=== PATIENT | female | born 1975 | race Caucasian/White ===

== ENCOUNTER 2023-10-15 10:07 | Emergency (ER) | payer BC, SELFPAY ==
[2023-10-15 10:12] VITALS: BP 125/60; PULSE 77; RESP 16; TEMP 36.5; O2SAT 99
[2023-10-15 10:34] VITALS: O2SAT 100
[2023-10-15] MEDS: KETOROLAC TROMETHAMINE 30 MG/ML VIAL IVP (10:39)
[2023-10-15] MEDS: DIPHENHYDRAMINE HCL 50 MG/ML (1ML) VIAL 25 MG IV (10:39)
[2023-10-15] MEDS: ONDANSETRON PF 4 MG/2 ML VIAL IV (10:39)
[2023-10-15] MEDS: 0.9 % SODIUM CHLORIDE 1,000 ML 999 ML IV (10:39)
--- NOTE | 2023-10-15 10:51 | PC.NURSE ---
High flow NRB removed, pt reports High O2 not heelping.
[2023-10-15 10:56] LABS: SARS-CoV-2 Ag NEGATIVE (NEGATIVE)
--- NOTE | 2023-10-15 11:11 | ED.GENADUL1 ---
HPI - General Adult General Chief complaint: Headache Stated complaint: HEADACHE Time Seen by Provider: 10/15/23 10:16 Source: patient Mode of arrival: walk-in History of Present Illness HPI narrative: frontal headache with radiation into the back of the head that began yesterday. No recent injury or illness. Typically her migraines resolve after taking sumatriptan - this one has not. She said that she has never had to come to the ED for treatment of her headaches/migraines. Related Data Home Medications Medication Instructions Recorded Confirmed sumatriptan succinate 100 mg tablet 100 mg PO Q2H PRN migraine headache 10/15/23 10/15/23 Previous Rx's Medication Instructions Recorded ondansetron 4 mg disintegrating 4 mg PO Q6H PRN nausea or headache 10/15/23 tablet #20 tabs Allergies Allergy/AdvReac Type Severity Reaction Status Date / Time azithromycin Allergy Severe Verified 10/15/23 10:15 Exam Narrative Exam Narrative: Nurses notes and vital signs reviewed and patient is not hypoxic. afebrile General: Uncomfortable. Skin: Warm, dry, no pallor noted. No rash. Head: Normocephalic, atraumatic. Neck: Supple, non-tender. no meningismus Eye: Pupils are equal, round and EOMI. No scleral icterus. Cardiovascular: Regular Rate and Rhythm without murmur, gallop or rub. Respiratory: No accessory muscle use or respiratory distress. Lungs are clear to auscultation, no wheezing, rales or rhonchi Chest Wall: no tenderness Back: No CVA tenderness Musculoskeletal: normal ROM GI: Abdomen is soft, non-distended. Normal bowel sounds. No tenderness to palpation. No rebound, guarding, or rigidity noted. Neurological: A&O x4. No cranial nerve dysfunction observed. No truncal ataxia. Moves all extremities. Sensation intact. Psychiatric: Cooperative and interactive. Normal mood and affect. Constitutional Vital Signs, click to edit/add: Last Vital Signs Temp 97.7 F 10/15/23 10:12 Pulse 73 10/15/23 11:29 Resp 14 10/15/23 11:29 BP 119/55 10/15/23 11:29 Pulse Ox 100 10/15/23 11:29 O2 Del Method Room Air 10/15/23 10:51 Course Vital Signs Vital signs: Vital Signs Temperature 97.7 F 10/15/23 10:12 Pulse Rate 77 10/15/23 10:12 Respiratory Rate 16 10/15/23 10:12 Blood Pressure 125/60 10/15/23 10:12 Pulse Oximetry 99 10/15/23 10:12 Oxygen Delivery Method Room Air 10/15/23 10:12 Temperature 97.7 F 10/15/23 10:12 Pulse Rate 73 10/15/23 11:29 Respiratory Rate 14 10/15/23 11:29 Blood Pressure 119/55 10/15/23 11:29 Pulse Oximetry 100 10/15/23 11:29 Oxygen Delivery Method Room Air 10/15/23 10:51 Medical Decision Making MDM Narrative Medical decision making narrative: covid negative Nausea much better after ED treatment. headache only slightly better after IV Toradol, Zofran and Benadryl. Given IV Solumedrol and Reglan. Her headache then was reduced to 2/10 from 9/10 at arrival. Patient discharged home with prescription for Zofran to take if her triptan doesnt work. Lab Data Lab results reviewed: Yes I reviewed the patient's lab results Labs: Lab Results 10/15/23 Range/Units 10:26 SARS-CoV-2 (PCR) Negative (NEGATIVE) Discharge Plan Discharge Chief Complaint: Headache Clinical Impression: Migraine Patient Disposition: Home, Self-Care Time of Disposition Decision: 11:47 Prescriptions / Home Meds: New ondansetron 4 mg tablet,disintegrating 4 mg PO Q6H PRN (Reason: nausea or headache) Qty: 20 0RF No Action sumatriptan succinate 100 mg tablet 100 mg PO Q2H PRN (Reason: migraine headache) Instructions: Migraine Headache (ED) Stand Alone Forms: Portal Instructions Referrals: NARENDRA SUAZO [Primary Care Provider] - 1 week
[2023-10-15] MEDS: METHYLPREDNISOLONE SOD SUCC PF 125 MG/2 ML VIAL IVP (11:22)
[2023-10-15] MEDS: METOCLOPRAMIDE HCL 10 MG/2 ML VIAL IVP (11:22)
[2023-10-15 11:29] VITALS: BP 119/55; PULSE 73; RESP 14; O2SAT 100
[2023-10-15 15:22] LABS: SARS-CoV-2 NAA NOT DETECTED (NOT DETECTE)
== END 2023-10-15 12:00 | disposition home or self-care (01) ==
PROVIDERS: Emergency Provider Emergency Medicine; PCP Nurse Practitioner Family
DX: G43.909 Migraine, unspecified, not intractable, without status migrainosus (principal); Z79.899 Other long term (current) drug therapy; Z20.822 Contact with and (suspected) exposure to COVID-19
CPT/HCPCS: 87635; 87811; 96374; 96375; 99284; J2930